=== PATIENT | male | born 1960 | race Caucasian/White ===

== ENCOUNTER 2018-03-31 08:58 | Outpatient (CLI) | payer BC, SELFPAY ==
[2018-03-31 10:57] LABS: Hemoglobin A1C 7.1 % (4.5-6.2)
[2018-03-31 10:59] LABS: ALT 147 U/L (12-78); AST 61 U/L (15-37); Albumin 3.7 g/dL (3.4-5.0); Alkaline Phosphatase 84 U/L (46-116); Anion Gap 11.5 mmol/L (3-11); BUN 18 mg/dL (7-18); Bilirubin, Total 0.6 mg/dL (0.2-1.0); CO2 23.5 mmol/L (21.0-32.0); CREATININE 1.23 mg/dL (0.70-1.30); Calcium 8.9 mg/dL (8.5-10.1); Chloride 106 mmol/L (98-107); Cholesterol 188 mg/dL (50-200); Glucose 167 mg/dL (70-100); HDL Cholesterol 53 mg/dL (40-60); LDL CHOLESTEROL 115 mg/dL (<100); Potassium 4.5 mmol/L (3.5-5.1); Sodium 141 mmol/L (136-145); Triglyceride 99 mg/dL (30-150)
[2018-04-01 11:35] LABS: Rheumatoid Factor <8 IU/mL (<12.5)
== END 2018-03-31 09:18 ==
PROVIDERS: PCP Emergency Medicine; Visit Provider Emergency Medicine
DX: Z00.00 Encounter for general adult medical examination without abnormal findings (principal); E11.9 Type 2 diabetes mellitus without complications; I10 Essential (primary) hypertension; E03.9 Hypothyroidism, unspecified; F32.9 Major depressive disorder, single episode, unspecified; K21.9 Gastro-esophageal reflux disease without esophagitis; R53.83 Other fatigue
CPT/HCPCS: 36415; 80053; 80061; 83721; 83036; 86431

== ENCOUNTER 2018-05-14 10:37 | Outpatient (CLI) | payer BC, SELFPAY ==
[2018-05-14 13:26] LABS: ALT 122 U/L (12-78); AST 50 U/L (15-37); Albumin 3.8 g/dL (3.4-5.0); Alkaline Phosphatase 88 U/L (46-116); Bilirubin, Direct 0.15 mg/dL (0.00-0.20); Bilirubin, Total 0.5 mg/dL (0.2-1.0); C-Reactive Protein 0.19 mg/dL (0.0-0.3); Total Protein 6.7 g/dL (6.4-8.2)
[2018-05-14 14:09] LABS: Ferritin 388 ng/mL (8-388)
[2018-05-17 10:54] LABS: Hepatitis A Antibody IgM Negative (NEGAT); Hepatitis B Core Antibody Negative (NEGAT); Hepatitis B surface Ag Negative (NEGAT); Hepatitis C Ab w Rflx HCV PCR Negative (NEGAT)
== END 2018-05-14 10:57 ==
PROVIDERS: PCP Emergency Medicine; Visit Provider Emergency Medicine
DX: R74.8 Abnormal levels of other serum enzymes (principal); R94.5 Abnormal results of liver function studies
CPT/HCPCS: 36415; 80076; 86704; 86709; 86803; 87340; 82728; 86140

== ENCOUNTER 2018-05-25 00:37 | Outpatient (CLI) | payer BC, SELFPAY ==
--- NOTE | 2018-05-25 06:57 | DI.US_ITS ---
SYMPTOM/DIAGNOSIS: ELEVATED LFT'S, R74.8 ABDOMEN ULTRASOUND: Comparison CT scan of the chest is 06/03/14. The aorta and IVC are unremarkable. There is diffuse increased echogenicity of the liver consistent with fatty infiltration. There are two areas of decreased echogenicity within the liver adjacent to the gallbladder fossa. The areas are characteristic for focal fatty sparing. No other hepatic lesion is seen. The gallbladder and common bile duct are within normal limits as are the pancreas and spleen. The kidneys are unremarkable except for mild prominence of the left renal pelvis. This may represent a prominent extrarenal pelvis. Hydronephrosis cannot be excluded. IMPRESSION: 1. Hepatic steatosis. 2. Areas of decreased echogenicity within the liver adjacent to the gallbladder fossa. This area is a common site for focal fatty sparing. Mass is considered less likely. If further imaging is warranted, a CT scan may be considered. 3. Mild left hydronephrosis versus prominent extrarenal pelvis.
== END 2018-05-25 00:57 ==
PROVIDERS: PCP Emergency Medicine; Visit Provider Emergency Medicine
DX: K76.0 Fatty (change of) liver, not elsewhere classified (principal); R74.8 Abnormal levels of other serum enzymes
CPT/HCPCS: 76700

== ENCOUNTER 2018-09-14 15:47 | Outpatient (CLI) | payer BC, SELFPAY ==
--- NOTE | 2018-09-14 15:30 | DI.RAD_ITS ---
SYMPTOMS/DIAGNOSIS: PNEUMONIA, J18.9, COUGH X 1 WEEK PA AND LATERAL CHEST: The heart is normal in size. The lungs are clear. The mediastinal structures and pleura appear intact. SUMMARY: Normal chest. No evidence of acute cardiopulmonary disease.
[2018-09-14 17:33] LABS: HCT 39.1 % (40.0-50.0); HGB 13.4 g/dL (13.5-17.5); Mean Corp. HGB Concentration 34.3 g/dL (32.0-36.0); Mean Corpuscular Hemoglobin 32.8 pg (27.0-33.0); Mean Corpuscular Volume 95.6 fL (80-95); Mean Platelet Volume 10.8 fL (8.0-11.0); Platelet Count 172 x1000/uL (130-400); RBC 4.09 m/cumm (4.50-6.00); RBC Distribution Width 13.7 % (11.8-14.1); White Blood Cell Count 6.41 k/cumm (4.4-10.8)
[2018-09-14 18:01] LABS: Hemoglobin A1C 6.9 % (4.5-6.2)
== END 2018-09-14 16:07 ==
PROVIDERS: PCP Emergency Medicine; Visit Provider Emergency Medicine
DX: J18.9 Pneumonia, unspecified organism (principal)
CPT/HCPCS: 36415; 85027; 71046; 83036

== ENCOUNTER 2018-10-27 11:13 | Outpatient (CLI) | payer BC, SELFPAY ==
[2018-10-28 11:04] LABS: PSA, Screening 4.1 ng/ml (0-3.5)
== END 2018-10-27 11:33 ==
PROVIDERS: PCP Emergency Medicine; Visit Provider Emergency Medicine
DX: Z12.5 Encounter for screening for malignant neoplasm of prostate (principal)
CPT/HCPCS: 36415; 84153

== ENCOUNTER 2019-01-10 10:53 | Outpatient (CLI) | payer BC, SELFPAY ==
[2019-01-11 13:16] LABS: PSA, Screening 5.1 ng/mL (0.0-3.5)
== END 2019-01-10 11:13 ==
PROVIDERS: PCP Emergency Medicine; Visit Provider Emergency Medicine
DX: R97.20 Elevated prostate specific antigen [PSA] (principal); Z12.5 Encounter for screening for malignant neoplasm of prostate
CPT/HCPCS: 36415; 84153

== ENCOUNTER 2019-07-04 09:01 | Outpatient (CLI) | payer BC, SELFPAY ==
[2019-07-04 11:43] LABS: Hemoglobin A1C 7.2 % (3.8-5.6)
[2019-07-05 09:53] LABS: PSA, Screening 5.1 ng/mL (0.0-3.5)
== END 2019-07-04 09:21 ==
PROVIDERS: PCP Emergency Medicine; Visit Provider Nurse Practitioner Gerontology
DX: E11.9 Type 2 diabetes mellitus without complications (principal); R97.20 Elevated prostate specific antigen [PSA]; Z12.5 Encounter for screening for malignant neoplasm of prostate
CPT/HCPCS: 36415; 84153; 83036

== ENCOUNTER 2019-08-22 07:53 | Outpatient (CLI) | payer BC, SELFPAY ==
[2019-08-25 07:49] LABS: SARS-CoV-2 RNA Undetected (Undetected); SARS-CoV-2 Specimen Source Nasopharynx
== END 2019-08-22 08:13 ==
PROVIDERS: PCP Emergency Medicine; Visit Provider Emergency Medicine
DX: Z01.818 Encounter for other preprocedural examination (principal); Z11.59 Encounter for screening for other viral diseases
CPT/HCPCS: U0003

== ENCOUNTER 2020-02-21 14:44 | Outpatient (REF) | payer BC, SELFPAY ==
[2020-02-21 17:52] LABS: PSA, Screening 5.9 ng/mL (0.0-3.5)
== END 2020-02-21 15:04 ==
LOC: LBN 14:44
PROVIDERS: PCP Emergency Medicine; Visit Provider Nurse Practitioner Gerontology
DX: R97.20 Elevated prostate specific antigen [PSA] (principal); Z12.5 Encounter for screening for malignant neoplasm of prostate
CPT/HCPCS: 84153

== ENCOUNTER 2020-04-18 11:55 | Outpatient (REF) | payer BC, SELFPAY ==
[2020-04-18 22:36] LABS: Hemoglobin A1C 8.2 % (<5.7)
[2020-04-18 22:43] LABS: Anion Gap 9.2 mmol/L (3-11); BUN 19 mg/dL (7-18); CO2 24.8 mmol/L (21.0-32.0); CREATININE 1.2 mg/dL (0.70-1.30); Calcium 9.2 mg/dL (8.5-10.1); Calculated LDL 133 mg/dL (<100); Chloride 106 mmol/L (98-107); Cholesterol 206 mg/dL (<200); Glucose 154 mg/dL (74-106); HDL Cholesterol 53 mg/dL (40-60); Potassium 4.6 mmol/L (3.5-5.1); Sodium 140 mmol/L (136-145); Triglyceride 104 mg/dL (<150)
== END 2020-04-18 11:56 | disposition home or self-care (01) ==
LOC: LBN 11:55
PROVIDERS: PCP Emergency Medicine; Visit Provider Emergency Medicine
DX: I10 Essential (primary) hypertension (principal); E11.9 Type 2 diabetes mellitus without complications
CPT/HCPCS: 80048; 80061; 83036

== ENCOUNTER 2020-05-07 02:16 | Outpatient (CLI) | payer BC, SELFPAY ==
--- NOTE | 2020-05-07 06:45 | DI.MRI_ITS ---
EXAM: MR LUMBAR SPINE WO CLINICAL HISTORY: chronic right sciatica, spinal stenosis,LOW BACK PAIN, M54.40,M48.00,G89.29. TECHNIQUE: Multiplanar multisequence MRI of the Lumbar spine was performed. COMPARISON: CR LUMBAR SPINE COMPLETE from 02/26/2010 FINDINGS: Plain films of lumbar spine February 2010 were reviewed. There are 5 vertebrae of lumbar configuratio n. Conus medullaris is at the L2 level. There is no evidence of conus mass nor subjacent clumping of in trathecal nerve roots to suggest arachnoiditis. The distal thecal sac appears unremarkable.There is no evidence of Tarlov intrasacral cysts nor other significant findings within the sacral canal Bones:There are no fractures nor ominous osseous lesions in the lumbar vertebral bodies and visualize d sacrum. Benign intraosseous hemangioma is noted in the posterior aspect of T12 vertebral body and other hemangioma is seen in the L1 vertebral body. Also another benign intraosseous hemangioma is no hilary in left side of L4 vertebral body. With respect to the individual levels... T12-L1: Unremarkable L1-2: Normal disc height and signal. No disc herniation nor central canal stenosis.No foraminal steno sis L2-3: Normal disc height. Small anterior osseous lipping. Posteriorly there is no significant disc herniation. Central canal dimensions within normal limits and there is no foraminal stenosis nor sig nificant facet arthropathy. L3-4: Normal disc height. Symmetrical annular bulging but without a distinct focal disc herniation. The annular bulging flattens the anterior aspect of the thecal sac.Mild central canal stenosis. The re is no significant foraminal stenosis.No facet arthropathy. L4-5: Normal disc height. Mild annular bulging without a distinct focal disc herniation. There is m ild anterolisthesis of L4 relative to L5, this evident more so on the right than the left side and re lated to advanced degenerative changes in the right facet joint at this level. Left facet joint appe ars relatively unremarkable. There is mild central canal stenosis due to the symmetrical annular bul ging, short AP dimensions the pedicles and degenerative facet joint changes. There is moderate right -sided foraminal stenosis at this level mostly due to the asymmetric degenerative change in the right facet joint and slight decreased disc height on the right side at this level. The exiting neural fo ramen on the opposite-laced left-side is nicely patent. L5-S1: Normal disc height and signal. No disc herniation. No central canal stenosis. No foraminal stenosis. Minimal facet degenerative changes. Soft tissues: paraspinal soft tissues appear unremarkable. IMPRESSION: 1. At the L4-5 level there is mild central canal stenosis and there is significant foraminal narrowin g on the right side as described above. This causes some impingement of the exiting nerve root betwe en the subjacent annulus and the overlying right L4 pedicle. There is also slight anterolisthesis of L4 upon L5 which is more evident on the right than left side and related to the asymmetric facet art hropathy at this level, right more so than left. See above. 2. Other mild findings as above. 3. Multilevel benign intraosseous hemangiomas in the vertebral bodies. No ominous osseous lesions ev ident. DATA REPOSITORY:
== END 2020-05-07 02:36 ==
PROVIDERS: PCP Emergency Medicine; Visit Provider Emergency Medicine
DX: M48.061 Spinal stenosis, lumbar region without neurogenic claudication (principal); M54.41 Lumbago with sciatica, right side
CPT/HCPCS: 72148

== ENCOUNTER 2020-08-22 10:26 | Outpatient (CLI) | payer BC, SELFPAY ==
[2020-08-22 13:03] LABS: Hemoglobin A1C 7.4 % (<5.7)
[2020-08-22 21:48] LABS: PSA, Diagnostic 6.4 ng/mL (0.0-3.5)
== END 2020-08-22 10:27 | disposition home or self-care (01) ==
LOC: LOS 08-23 10:26
PROVIDERS: Nurse Practitioner Gerontology; PCP Emergency Medicine; Visit Provider Emergency Medicine
DX: E11.9 Type 2 diabetes mellitus without complications (principal); R97.20 Elevated prostate specific antigen [PSA]
CPT/HCPCS: 36415; 83036; 84153

== ENCOUNTER 2021-01-01 08:38 | Outpatient (CLI) | payer BC, SELFPAY ==
--- NOTE | 2021-01-01 08:30 | RT.EKG_ITS ---
APPROVED REPORT Exam: Resting ECG Reason for Exam: Preoperative testing Patient Location: O HR:78 bpm ECG Measurements Heart Rate 78 AXIS UT 156 P 36 QRSd 98 QRS 56 QT 372 T 53 QTc 426 Conclusion Sinus rhythm...normal P axis, V-rate 60- 99 Low voltage, precordial leads...precordial leads <1.0mV
== END 2021-01-01 08:39 | disposition home or self-care (01) ==
LOC: DI.CM 08:43
PROVIDERS: PCP Emergency Medicine; Visit Provider Family Medicine
DX: Z01.818 Encounter for other preprocedural examination (principal)
CPT/HCPCS: 93010

== ENCOUNTER 2021-01-18 04:11 | Outpatient (CLI) | payer BC, SELFPAY ==
[2021-01-18 12:50] LABS: HCT 42.5 % (40.0-50.0); HGB 14.3 g/dL (13.5-17.5); MCH 32.9 pg (27.0-33.0); MCHC 33.6 % (32.0-36.0); MCV 97.9 fL (80-95); RBC 4.34 10^6/uL (4.36-5.78); RDW 12.2 % (11.8-14.1); RDW-SD 44.2 fL; WBC 5.16 10^3/uL (4.4-10.8)
[2021-01-18 13:28] LABS: ALT 90 U/L (16-63); AST 39 U/L (15-37); Albumin 4.3 g/dL (3.4-5.0); Alkaline Phosphatase 63 U/L (46-116); Anion Gap 10.2 mmol/L (3-11); BUN 21 mg/dL (7-18); Bilirubin, Total 0.7 mg/dL (0.2-1.0); CO2 25.8 mmol/L (21.0-32.0); CREATININE 1.2 mg/dL (0.70-1.30); Calculated LDL 127 mg/dL (<100); Chloride 105 mmol/L (98-107); Cholesterol 193 mg/dL (<200); Glucose 117 mg/dL (74-106); HDL Cholesterol 53 mg/dL (40-60); Potassium 4.7 mmol/L (3.5-5.1); Sodium 141 mmol/L (136-145); Total Protein 7.5 g/dL (6.4-8.2); Triglyceride 65 mg/dL (<150)
[2021-01-18 13:38] LABS: Microalb ug/mg Crea 5.1 ug/mg Cr
[2021-01-18 22:46] LABS: PSA, Screening 7.1 ng/mL (0.0-3.5)
== END 2021-01-18 04:12 | disposition home or self-care (01) ==
LOC: LOS 04:11
PROVIDERS: PCP Emergency Medicine; Visit Provider Family Medicine
DX: E11.9 Type 2 diabetes mellitus without complications; I10 Essential (primary) hypertension; Z12.5 Encounter for screening for malignant neoplasm of prostate
CPT/HCPCS: 36415; 80053; 80061; 84153; 85027; 82043; 82570; 83036

== ENCOUNTER 2021-02-21 08:16 | Outpatient (REF) | payer BC, SELFPAY | END 2021-02-21 08:17 | disposition home or self-care (01) | LOC: LBN 08:16 | PROVIDERS: PCP Emergency Medicine; Visit Provider Emergency Medicine ==

== ENCOUNTER 2021-07-29 09:21 | Outpatient (CLI) | payer BC, SELFPAY ==
--- NOTE | 2021-07-29 08:45 | DI.RAD_ITS ---
Exam(s) XR HIP RT COMPLETE AP PELVIS EXAM: XR HIP RT COMPLETE AP PELVIS INDICATION: R hip pain. COMPARISON: CR LUMBAR SPINE COMPLETE from 02/26/2010 US US ABDOMEN from 05/25/2018 TECHNIQUE: 2D digital imaging was performed. Two views. FINDINGS: The hip joint spaces are well maintained. There is mild acetabular spurring on the left. No signif icant spurring on the right. Hardware is noted through both SI joints IMPRESSION: Mild degenerative changes of the left hip. DATA REPOSITORY: RADIATION DOSE DELIVERED:
== END 2021-07-29 09:22 | disposition home or self-care (01) ==
LOC: DIORS 09:22
PROVIDERS: PCP Nurse Practitioner Family; Referring Provider Nurse Practitioner Family; Visit Provider Physician Assistant
DX: M25.551 Pain in right hip (principal)
CPT/HCPCS: 73502

== ENCOUNTER → 2021-08-22 01:26 | Outpatient (CLI) | payer BC, SELFPAY ==
--- NOTE | 2021-08-22 08:30 | DI.RAD_ITS ---
Exam(s) RF JOINT INJECTION FLUORO GUID EXAM: RF JOINT INJECTION FLUORO GUID CLINICAL HISTORY: R HIP INJ UNDER FLUORO, RT HIP PAIN, M25.551 TECHNIQUE: Fluoroscopy provided. Radiologist not present. CONTRAST MATERIAL: None COMPARISON: No exams were available for comparison FINDINGS: Fluoroscopy was provided for therapeutic therapeutic right hip injection. Please refer to the procedure report for complete details. Cumulative Dose: Kar=0.31 mGy IMPRESSION: RADIATION DOSE DELIVERED:
--- NOTE | 2021-08-22 14:49 | W.PROCNOTE ---
Date of service: 08/22/21 Time of Service: 14:49 Procedure Note Date of procedure: 08/22/21 Procedure: Right Hip Injection with Fluoroscopic Guidance Surgeon/Proceduralist/Physician: Albert Mckeon Procedure Diagnosis: Right Hip Osteoarthritis Procedure Indications: Aly has had persistent pain of the RIGHT hip and groin. Noninvasive measures have been tried. To serve as both diagnostic and therapeutic, an injection under fluoroscopy was recommended. I had discussed the risks of the procedure and the patient elected to proceed. Procedure Description: Aly was greeted in the flouroscopy room. The correct side was identified and the consent was reviewed with the patient and signed. The patient was then placed in the supine position on the fluoroscopy table. The RIGHT hip was then prepped with Chloraprep. The anterolateral injection starting point was identiifed by bony landmarks and fluoroscopy. The skin and soft tissue in the tract of the injection was anesthetized with 1% Lidocaine. A spinal needle was then inserted deep into the hip joint at the level of the lateral femoral neck under fluoroscopic guidance. A small amount of Omnipaque solution was injected to confirm intraarticular placement. Once confirmed, the hip was injected with 6cc of 0.5% Bupivicaine and 80mg of Depo-Medrol. A bandaid was placed on the injection site. The patient tolerated the procedure well.
[2021-08-22] MEDS: Omnipaque 300 MG/ML 10 ML BTL IJ (15:09)
[2021-08-22] MEDS: methylPREDNISolone ACETATE 80 MG/ML VIAL IM (15:09)
[2021-08-22] MEDS: Bupivacaine 0.5% Pres-Free 10 ML VIAL 30 ML IJ (15:10)
== END ==
PROVIDERS: PCP Nurse Practitioner Family; Visit Provider Student in an Organized Health Care Education/Training Program
DX: M25.551 Pain in right hip (principal)
CPT/HCPCS: 20610; 77002; J1040

== ENCOUNTER 2021-09-02 01:48 | Outpatient (CLI) | payer BC, SELFPAY ==
[2021-09-03 16:27] LABS: Free PSA/PSA Ratio 0.06 ratio
== END 2021-09-02 01:49 | disposition home or self-care (01) ==
LOC: LBO 01:48
PROVIDERS: PCP Nurse Practitioner Family; Visit Provider Nurse Practitioner Gerontology
DX: R97.20 Elevated prostate specific antigen [PSA] (principal)
CPT/HCPCS: 36415; 84154

== ENCOUNTER 2021-09-11 14:37 | Outpatient (REF) | payer BC, SELFPAY ==
[2021-09-11 10:34] LABS: CREATININE 1.2 mg/dL (0.70-1.30)
== END 2021-09-11 14:38 | disposition home or self-care (01) ==
LOC: LBN 14:37
PROVIDERS: PCP Nurse Practitioner Family; Visit Provider Nurse Practitioner Gerontology
DX: R97.20 Elevated prostate specific antigen [PSA] (principal); Z01.812 Encounter for preprocedural laboratory examination
CPT/HCPCS: 82565

== ENCOUNTER → 2021-11-21 01:40 | Outpatient (CLI) | payer BC, SELFPAY ==
--- NOTE | 2021-11-21 06:45 | DI.US_ITS ---
Exam(s) US PROSTATE BIOPSY EXAM: US PROSTATE BIOPSY CLINICAL HISTORY: biopsy for cancer detection,ELEVATED PSA, R97.20,ULTRASOUND GUIDED BX TECHNIQUE: Ultrasound performed using standard protocol. COMPARISON: No exams were available for comparison FINDINGS: Ultrasound guidance was provided for prostate biopsy performed by Dr. Mcdaniels. Please see the procedur e note. IMPRESSION: DATA REPOSITORY:
--- NOTE | 2021-11-21 08:30 | PROST_PTH ---
PATIENT: Aly Goyal LOC: [facility] U#:[id number] AGE/SX: 64/M ROOM: RE11/21/[address]: Samson Mcdaniels MD : [id number] BED: DIS: SPEC #: [id number] RECD: 11/21/21 12:54 STATUS: JOSE A DOCKERY #: [id number] TESSIE: 11/21/21 08:[address]: Samson Mcdaniels DEPT: Surgical Specimen RECD BY: Aniyah Blake ENTERED: 11/21/21 12:57 SP TYPE: PROST OTHR DR: Emir Clayton, [employer] Tissues: 1 - PROSTATE NEEDLE BIOPSY 2 - PROSTATE NEEDLE BIOPSY 3 - PROSTATE NEEDLE BIOPSY 4 - PROSTATE NEEDLE BIOPSY 5 - PROSTATE NEEDLE BIOPSY 6 - PROSTATE NEEDLE BIOPSY 7 - PROSTATE NEEDLE BIOPSY 8 - PROSTATE NEEDLE BIOPSY 9 - PROSTATE NEEDLE BIOPSY 10 - PROSTATE NEEDLE BIOPSY 11 - PROSTATE NEEDLE BIOPSY 12 - PROSTATE NEEDLE BIOPSY Procedures: GROSS AND MICRO LEVEL 4 Comments: [id number]
--- NOTE | 2021-11-21 08:45 | W.PM.OP ---
Date of service: 11/21/21 Time of Service: 08:45 Operative Note Operative Note DATE OF PROCEDURE: 11/21/21 PRE-OP DIAGNOSIS: Elevated PSA POST-OP DIAGNOSIS: same abnormal MP prostate MRI PROCEDURE: Transrectal ultrasound-guided biopsy of the prostate SURGEON: Samson Mcdaniels ANESTHESIA TYPE: Local By Surgeon Refer to Anesthesia Record ESTIMATED BLOOD LOSS: 10 PATHOLOGY: other (Laterally directed biopsies of the prostate) COMPLICATIONS: None Patient was transported to: no change Patient's condition: stable Implants: None Indications: This is a 61-year-old gentleman who has a history of an elevated PSA. His most recent PSA level was 8.9 ng/mL and his free and total PSA puts him in a high risk group for prostate cancer. He underwent a multiparameter prostate MRI and an abnormality was identified at the right apex. His overall findings were consistent with PI-RADS 5. He presents for ultrasound-guided biopsy of the prostate Procedure Description: The patient was brought to the radiology suite on 11/21/2021. He had been given a preprocedural antibiotic and mechanical bowel prep. He was placed in the left lateral position. Transrectal imaging of the prostate was then performed using a variable megahertz transducer. The prostate was imaged in transverse and longitudinal planes. The prostatic volume was measured at 33 cc. On MRI, the prostate was measured at 13 cc. No specific hypoechoic areas were seen, but there was loss of architecture between the transition and peripheral zones throughout the prostate. A periprostatic nerve block with 1% lidocaine was then performed. A total of 12 laterally directed biopsies were taken, labeled and sent to pathology for permanent section. The patient tolerated the procedure well with no complications.
== END ==
PROVIDERS: PCP Nurse Practitioner Family; Visit Provider Urology
DX: R97.20 Elevated prostate specific antigen [PSA] (principal); C61 Malignant neoplasm of prostate
CPT/HCPCS: 55700; 88305; 76942

== ENCOUNTER → 2021-12-25 01:45 | Outpatient (CLI) | payer BC, SELFPAY ==
--- NOTE | 2021-12-25 07:00 | DI.NM_ITS ---
Exam(s) NM BONE SCAN WHOLE BODY GRP EXAM: NM BONE SCAN WHOLE BODY GRP CLINICAL HISTORY: ? bony mets, prostate ca,c61. TECHNIQUE: Injected Dose: 25 mCi Tc-99m MDP Delayed Images: 2-3 hours. COMPARISON: CR CHEST 2 VIEWS PA,LAT from 06/03/2015 CR XR CHEST 2V PA LATERAL from 09/14/2018 MR MR LUMBAR SPINE WO from 05/07/2020 FINDINGS: Symmetric axial uptake. Bilateral renal excretion is identified. No focal area of intense suspicious uptake is seen. There is mild increased radiotracer uptake at the right aspect at the L4-5 disc level . This appears to correspond tube marked facet arthropathy seen on the MRI examination from 1. There is increased radiotracer uptake in the acromioclavicular regions bilaterally, left greater than right. This may represent degenerative changes. However the left focus of increased activity s hould be further evaluated with an x-ray of the left shoulder. IMPRESSION: 1. Increased radiotracer uptake seen in the distal left clavicle. It is more prominent compared to t he contralateral shoulder. While this may still represent degenerative change, and x-ray of the left shoulder is recommended for further evaluation. 2. No other suspicious areas of increased radiotracer uptake are seen. DATA REPOSITORY:
== END ==
PROVIDERS: PCP Nurse Practitioner Family; Visit Provider Nurse Practitioner Gerontology
DX: C61 Malignant neoplasm of prostate (principal)
CPT/HCPCS: 78306

== ENCOUNTER → 2022-01-10 00:48 | Outpatient (CLI) | payer BC, SELFPAY ==
--- NOTE | 2022-01-10 09:52 | DI.RAD_ITS ---
Exam(s) XR SHOULDER LT COMPLETE 2+V EXAM: XR SHOULDER LT COMPLETE 2+V CLINICAL HISTORY: ABN bone scan area to left shoulder M75.92 SHOULDER LESION, LEFT SHOULDER TECHNIQUE: COMPARISON: [facility] BONE SCAN WHOLE BODY GRP from 12/25/2021 FINDINGS: Five views were obtained. Cartilaginous joint space of the glenohumeral joint appears fairly well ma intained. There are mild hypertrophic marginal osteophytes of the glenohumeral and acromioclavicular joints. No other bony or soft tissue abnormality seen. Regarding the abnormal uptake identified in the distal left clavicle on recent bone scan, radiographi c findings are probably consistent with a degree of abnormality identified on the bone scan. If ther e is a high clinical suspicion of neoplastic disease or infection, additional evaluation with MRI cou ld be considered. IMPRESSION: RADIATION DOSE DELIVERED: Total DLP
== END ==
PROVIDERS: PCP Nurse Practitioner Family; Visit Provider Nurse Practitioner Gerontology
DX: M75.92 Shoulder lesion, unspecified, left shoulder (principal)
CPT/HCPCS: 73030

== ENCOUNTER 2022-02-24 02:34 | Outpatient (CLI) | payer BC, SELFPAY ==
[2022-02-24 13:12] LABS: CREATININE 1.2 mg/dL (0.70-1.30); Estimated GFR 69.23 (mL/min/1.73m2)
[2022-02-24 13:18] LABS: Creatine Kinase 52 U/L (39-308)
[2022-02-24] MEDS: Normal Saline Flush 10 ML SYR IVP (13:34)
[2022-02-24] MEDS: Gadoterate meglumine 20 ML SYRINGE IVP (13:35)
--- NOTE | 2022-02-24 13:45 | DI.MRI_ITS ---
Exam(s) MR UPPER JOINT LT WO/W EXAM: MR UPPER JOINT LT WO/W CLINICAL HISTORY: evaluate neoplasm left shoulder/clavicle,PROSTATE CA,C61. TECHNIQUE: Multiplanar multisequence MRI was performed. Additional pre and post gadolinium T1 fat s uppressed sequences were performed. 20 mL Dotarem administered IV. COMPARISON: Plain films 10 January 2022. Bone scan 25 December 2021. FINDINGS: Bones: There is no fracture or contusion pattern. No suspicious bony lesions. The acromioclavicular joint shows minimal spurring a tiny amount of fluid. Minimal bony erosions.. No suspicious bony lesion. No abnormal enhancement. No adjacent soft tissue abnormality. Glenohumeral joint: Minimal amount of fluid. Rotator Cuff: The supraspinatus tendon shows some thickening and intermediate signal consistent tendi nosis.. Infraspinatus tendon is intact. Teres minor tendon unremarkable. The subscapularis tendon shows thickening and intermediate signal. No focal tear visible. Labrum and biceps anchor: The biceps tendon is located. Degenerative changes superior glenoid. Soft tissues: Unremarkable. Bursa: Small amount of fluid in the subcoracoid bursa. IMPRESSION: Minimal degenerative changes of the AC joint. No evidence of a suspicious bone or soft tissue mass. Supraspinatus and subscapularis tendinosis. DATA REPOSITORY:
== END 2022-02-24 02:54 ==
LOC: DI 02:34
PROVIDERS: PCP Nurse Practitioner Family; Visit Provider Nurse Practitioner Family
DX: C61 Malignant neoplasm of prostate (principal); M79.602 Pain in left arm; M75.82 Other shoulder lesions, left shoulder
CPT/HCPCS: 82550; 73223; 82565

== ENCOUNTER 2022-03-24 13:46 | Outpatient (CLI) | payer BC, SELFPAY ==
[2022-03-24 12:47] LABS: Hemoglobin A1C 7.1 % (<5.7)
== END 2022-03-24 13:47 | disposition home or self-care (01) ==
LOC: LOS 13:47
PROVIDERS: PCP Nurse Practitioner Family; Visit Provider Nurse Practitioner Family
DX: E11.9 Type 2 diabetes mellitus without complications (principal)
CPT/HCPCS: 36415; 83036

== ENCOUNTER 2022-03-26 12:08 | Outpatient (CLI) | payer BC, SELFPAY ==
--- NOTE | 2022-03-26 06:00 | DI.RAD_ITS ---
Exam(s) XR PAIN CLINIC LUMBAR SP 2V EXAM: XR PAIN CLINIC LUMBAR SP 2V CLINICAL HISTORY: Dx: Lumbar Arthropathy TECHNIQUE: 2D and realtime digital imaging was performed. CONTRAST MATERIAL: Refer to procedure report. COMPARISON: No exams were available for comparison FINDINGS: Fluoroscopy was provided for Dr. Levy during the performance of a lumbar nerve root block. Please r efer to the procedure report for complete details. Ka,r=16.3 mGy IMPRESSION:
[2022-03-26 12:18] VITALS: BP 137/89; PULSE 74; RESP 20; TEMP 36.7; O2SAT 98
--- NOTE | 2022-03-26 13:38 | PDOC.PAIN_ITS ---
Date of service: 03/26/22 Time of Service: 13:53 Pain Clinic Procedure Note Procedure Note Procedure Note: PROCEDURE NOTE Selective Nerve Block with Fluoroscopic Guidance at Right L5 Chief Complaint: RIGHT leg pain. Pre-operative diagnosis: Lumbosacral Radiculopathy Post-operative diagnosis: Same Pre-procedure pain: VAS= 6/10 Aly Goyal has been [facility] a Selective Nerve Root Block at the right L5 COMMENTS: Referring provider: Dr. Puga Allergies: Non-contributory Pre-procedure VAS: 6/10 to the right leg. Follow up plan: Follow up with Dr. Puga Aly Goyal was greeted by the nurse who verified patients name and . Patient was then taken to the fluoroscopy suite. Aly was interviewed and the medical record reviewed. There were no medical, pharmacologic, radiographic or other structural contraindications to attempting fluoroscopically guided right L5 selective nerve root block. The risks, benefits, and potential side effects were reviewed with the patient. Risk include, but not limited to, post dural puncture, headache, infection, nerve injury, allergic reaction, possible increase in symptoms over the ensuing 24 to 48 hours, and paralysis. The patient appeared to understand, questions were answered and the patient agreed to proceed. Once I obtained informed verbal consent, the printed consent form was signed by the patient and myself. Standard time-out procedure was performed. TECHNIQUE: After informed written consent was obtained the patient was placed in the prone position. The {Anatomy; spine regions:09275} spine was prepped with chloraprep and draped. Sterile technique was observed during the entire procedure ( cap, gloves, and mask were worn). Vitals signs were monitored throughout the procedure. The right side was marked with a radiopaque marker. The skin and subcutaneous structures were anesthetized with lidocaine 1% to a total volume of 3 ML. Under fluoroscopic guidance, in ipsilateral oblique view, co-axial approach, 22 gauge 5 Spinal needle(s) were advanced into the right L5 foramen. The needle(s) were advanced to the superio-posterior aspect of the neural foramen under lateral view. Oblique and AP views were rechecked. Under AP view Omnipaque 240 1 ml was injected while visualized with fluoroscopy. There was no evidence of intravascular uptake, the right L5 nerve root was delineated. 15 mg Dexamethasone was injected after negative aspiration, followed by 0.5 cc of 2% lidocaine. (49 ml of Omnipaque was wasted) Outcome: The patient tolerated the procedure well and had stable vital signs. The patient noted after getting up after the procedure that their RIGHT leg pain was at a 3 out of 10 level. Follow up plans and appointments were discussed with Aly . 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 The patient received written instructions as documented in nursing records. Post-procedure pain: VAS= 3/10 Disposition: Aly was discharged from the procedure suite without new neurological complaints. Follow-up: Follow up with Dr. Puga as scheduled or PRN. DELPHINE GUEVARA DO, MPH ABPMR-subspecialty board certification in Pain Medicine [facility]
[2022-03-26] MEDS: Lidocaine 2% Pres-Free 5 ML VIAL IJ (13:39)
[2022-03-26] MEDS: Dexamethasone Sod. Phos./Pres-Free 10 MG/ML VIAL IJ (13:39)
[2022-03-26 13:40] VITALS: BP 152/89; PULSE 68; RESP 14; O2SAT 97
[2022-03-26] MEDS: Omnipaque 240 MG/ML 50 ML BTL IJ (13:40)
== END 2022-03-26 12:09 | disposition home or self-care (01) ==
LOC: PC 12:10
PROVIDERS: PCP Nurse Practitioner Family; Visit Provider Preventive Medicine Occupational Medicine
DX: M54.17 Radiculopathy, lumbosacral region (principal)
CPT/HCPCS: 64483; 72100; Q9967

== ENCOUNTER 2022-05-30 19:53 | Outpatient (REF) | payer BC, SELFPAY | END 2022-05-30 19:54 | disposition home or self-care (01) | LOC: LBN 19:53 | PROVIDERS: PCP Nurse Practitioner Family; Visit Provider Nurse Practitioner Family | DX: B95.7 Other staphylococcus as the cause of diseases classified elsewhere; T81.49XA Infection following a procedure, other surgical site, initial encounter; L08.89 Other specified local infections of the skin and subcutaneous tissue; L53.8 Other specified erythematous conditions | CPT/HCPCS: 87077; 87070; 87186; 87205 ==

== ENCOUNTER 2022-07-17 03:06 | Outpatient (CLI) | payer BC, SELFPAY ==
--- NOTE | 2022-07-17 08:45 | DI.RAD_ITS ---
Exam(s) RF JOINT INJECTION FLUORO GUID EXAM: RF JOINT INJECTION FLUORO GUID CLINICAL HISTORY: R HIP INJ UNDER FLUORO,RT HIP PAIN, M25.551 TECHNIQUE: Fluoroscopy provided. Radiologist not present. CONTRAST MATERIAL: None COMPARISON: No exams were available for comparison FINDINGS: Fluoroscopy was provided for right hip injection Please refer to procedure report for details. Cumulative Dose: geoffrey Bloom=0.198 mGy IMPRESSION: RADIATION DOSE DELIVERED:
[2022-07-17] MEDS: Omnipaque 300 MG/ML 10 ML BTL 5 ML IJ (15:18)
[2022-07-17] MEDS: methylPREDNISolone ACETATE 80 MG/ML VIAL IM (15:19)
[2022-07-17] MEDS: Bupivacaine 0.5% Pres-Free 10 ML VIAL 5 ML IJ (15:20)
--- NOTE | 2022-07-17 15:40 | W.PROCNOTE ---
Date of service: 07/17/22 Time of Service: 15:10 Procedure Note Date of procedure: 07/17/22 Procedure: Right Hip Injection with Fluoroscopic Guidance Surgeon/Proceduralist/Physician: Albert Mckeon Procedure Diagnosis: Right Hip Osteoarthritis Procedure Indications: Aly has had persistent pain of the RIGHT hip and groin. Noninvasive measures have been tried. To serve as both diagnostic and therapeutic, an injection under fluoroscopy was recommended. I had discussed the risks of the procedure and the patient elected to proceed. Procedure Description: Aly was greeted in the flouroscopy room. The correct side was identified and the consent was reviewed with the patient and signed. The patient was then placed in the supine position on the fluoroscopy table. The RIGHT hip was then prepped with Chloraprep. The anterolateral injection starting point was identiifed by bony landmarks and fluoroscopy. The skin and soft tissue in the tract of the injection was anesthetized with 1% Lidocaine. A spinal needle was then inserted deep into the hip joint at the level of the lateral femoral neck under fluoroscopic guidance. A small amount of Omnipaque solution was injected to confirm intraarticular placement. Once confirmed, the hip was injected with 5cc of 0.5% Bupivicaine and 80mg of Depo-Medrol. A bandaid was placed on the injection site. The patient tolerated the procedure well and noted improvement in pre-injection pain.
== END 2022-07-17 03:26 ==
LOC: DI 03:06
PROVIDERS: PCP Nurse Practitioner Family; Visit Provider Student in an Organized Health Care Education/Training Program
DX: M25.551 Pain in right hip (principal)
CPT/HCPCS: 77002; J1040

== ENCOUNTER 2022-09-17 03:13 | Outpatient (CLI) | payer BC, SELFPAY ==
[2022-09-19 10:05] LABS: PSA, Ultrasensitive <0.01 ng/mL (<= 4.5)
== END 2022-09-17 03:14 | disposition home or self-care (01) ==
PROVIDERS: PCP Nurse Practitioner Family; Visit Provider Urology
DX: C61 Malignant neoplasm of prostate (principal)
CPT/HCPCS: 36415; 84153

== ENCOUNTER → 2022-11-06 02:24 | Outpatient (CLI) | payer BC, SELFPAY ==
--- NOTE | 2022-11-06 | DI.MRI_ITS ---
Exam(s) MR LUMBAR SPINE WO EXAM: MR LUMBAR SPINE WO CLINICAL HISTORY: FUSION SI JOINT Z98.1 RT SIDED LOW BACK PAIN M54.50 G89.29. TECHNIQUE: Multiplanar multisequence MRI of the Lumbar spine was performed. COMPARISON: MR MR LUMBAR SPINE WO from 05/07/2020 FINDINGS: Bones: The last intervertebral disc space is designated the L5/S1 level for the numbering purpose of this examination. The vertebral body heights are well maintained. Alignment is satisfactory. Degene rative endplate signal changes are seen at multiple levels. Stable hemangiomas are seen. Note is ma de of bilateral SI joint fusion. Cord: The conus tip ends at the L2 level. It is of normal size and signal intensity. T12-L1: No disc herniations or bulges are present. No central spinal canal or neural foraminal stenos is. L1-2: No disc herniations or bulges are present. No central spinal canal or neural foraminal stenosis . L2-3: There is a very mild diffuse disc bulge. No significant central spinal canal stenosis. There is no right neural foraminal stenosis. There is mild narrowing of the left neural foramen. L3-4: There is a diffuse disc bulge. There are hypertrophic changes of the facets. There is mild na rrowing of the central spinal canal. There is mild bilateral neural foraminal narrowing. L4-5: There is a diffuse disc bulge. There are degenerative changes of facets, right greater than le ft. Hypertrophy of the ligamentum flavum is noted. The findings result in marked central spinal can al stenosis and right marked neural foraminal stenosis. Minimal narrowing is seen of the left neural foramen. L5-S1: No disc herniations or bulges are present. There are degenerative changes of the facets. No s ignificant central spinal canal or neural foraminal stenosis is present. Soft tissues: The visualized SI joints and sacrum are well maintained. The paraspinal soft tissues ar e unremarkable. IMPRESSION: 1. Multilevel degenerative changes of the lumbar spine. The findings are most marked at the L4-5 lev el where there is marked central spinal canal and right neural foraminal stenosis. There is minimal left neural foraminal stenosis. 2. Bilateral SI joint fusion. DATA REPOSITORY:
--- NOTE | 2022-11-06 08:35 | DI.CT_ITS ---
Exam(s) CT LUMBAR SPINE WO EXAM: CT LUMBAR SPINE WO CLINICAL HISTORY: FUSION SI JOINT Z98.1 RT SIDED LOW BACK PAIN M54.50 G89.29. TECHNIQUE: Imaging Protocol: Axial computed tomography images with coronal and sagittal reformatted images were created and reviewed COMPARISON: MR MR LUMBAR SPINE WO from 11/06/2022 FINDINGS: Bones: The last intervertebral disc space is designated the L5/S1 level for the numbering purpose of this examination. Endplate osteophytes are seen at multiple levels of the lumbar spine. There is di sc space narrowing and a vacuum disc at L4-L5. There are degenerative changes of the facets from L3- 4 through L5-S1. The findings are most marked on the right at L4-5. alignment is satisfactory. No fr acture is seen. Postsurgical changes of bilateral SI joint effusion is seen. T12-L1: No disc herniations or bulges are present. No central spinal canal or neural foraminal steno sis. L1-2: No disc herniations or bulges are present. No central spinal canal or neural foraminal stenosi s. L2-3: No disc herniations or bulges are present. No significant central spinal canal stenosis or rig ht neural foraminal stenosis. There is a mild diffuse disc bulge. There is mild narrowing of the le ft neural foramen. L3-4: There is a diffuse disc bulge. There is mild narrowing of the central spinal canal. There is mild narrowing of the left neural foramen. No central spinal canal or neural foraminal stenosis. L4-5: There is a diffuse disc bulge. There is marked right neural foraminal stenosis and mild left neural foraminal stenosis. There is marked central spinal canal stenosis. L5-S1: No disc herniations or bulges are present. No central spinal canal or neural foraminal stenos is. Soft Tissues: The visualized SI joints and sacrum are will maintained. There is diverticulosis seen in the colon. IMPRESSION: Multilevel degenerative changes in the lumbar spine. The findings are most marked at L4-L5, where th ere is marked central spinal canal and right neural foraminal stenosis. RADIATION DOSE DELIVERED: 880.89mGy.cm Total DLP 880.89mGy.cm Total DLP DATA REPOSITORY: All CT scans at this facility are submitted to the National Radiology Data Registry (NRDR) Dose Index Registry (DIR) with the [employer] (ACR). RADIATION OPTIMIZATION: All CT scans at this facility use at least one of these dose optimization te chniques: automated exposure control; mA and/or kV adjustment per patient size (includes targeted exa ms where dose is matched to clinical indication); or iterative reconstruction.
== END ==
PROVIDERS: PCP Nurse Practitioner Family; Visit Provider Orthopaedic Surgery Orthopaedic Surgery of the Spine
DX: M51.37 Other intervertebral disc degeneration, lumbosacral region (principal); M99.61 Osseous and subluxation stenosis of intervertebral foramina of cervical region
CPT/HCPCS: 72131; 72148

== ENCOUNTER 2023-01-21 09:00 | Outpatient (CLI) | payer BC, SELFPAY ==
[2023-01-21 12:48] LABS: HGB 14.6 g/dL (13.5-17.5); MCH 31.6 pg (27.0-33.0); MCHC 33.2 % (32.0-36.0); MCV 95 fL (80-95); MPV 11.2 fL (8.0-11.0); Platelet Count 130 10^3/uL (130-400); RBC 4.62 10^6/uL (4.36-5.78); RDW 12.9 % (11.8-14.1); RDW-SD 45.7 fL; WBC 4.95 10^3/uL (4.4-10.8)
[2023-01-21 13:04] LABS: CREATININE 1.3 mg/dL (0.70-1.30); Calculated LDL 99 mg/dL (<100); Cholesterol 172 mg/dL (<200); HDL Cholesterol 55 mg/dL (40-60); Triglyceride 91 mg/dL (<150)
[2023-01-21 13:10] LABS: Epithelial Cells Rare HPF (Negative); RBC 0-2 HPF (0-2); WBC 0-2 HPF (0-5)
[2023-01-21 13:11] LABS: Bacteria Many HPF (Negative); Casts Negative LPF (Negative); Crystals Negative HPF (Negative); Mucus Negative (Negative)
[2023-01-21 13:14] LABS: C & S Indicated? Yes
== END 2023-01-21 09:01 | disposition home or self-care (01) ==
LOC: LOS 09:00
PROVIDERS: Urology; PCP Nurse Practitioner Family; Visit Provider Nurse Practitioner Family
DX: Z13.220 Encounter for screening for lipoid disorders (principal); E11.9 Type 2 diabetes mellitus without complications
CPT/HCPCS: 36415; 80061; 85027; 81015; 82565; 87086

== ENCOUNTER 2023-01-22 21:08 | Outpatient (REF) | payer BC, SELFPAY ==
[2023-01-22 22:43] LABS: MRSA PCR Negative (Negative)
== END 2023-01-22 21:09 | disposition home or self-care (01) ==
LOC: LBN 21:08
PROVIDERS: PCP Nurse Practitioner Family; Visit Provider Nurse Practitioner Family
DX: Z01.818 Encounter for other preprocedural examination (principal)
CPT/HCPCS: 87641

== ENCOUNTER 2023-03-30 19:15 | Outpatient (CLI) | payer BC, SELFPAY ==
[2023-03-30 16:08] LABS: Bilirubin Small (Negative); Blood Negative (Negative); Clarity Clear (Clear); Glucose Negative (Negative); Ketones Trace mg/dL (Negative); Leukocyte Esterase Negative (Negative); Nitrite Negative (Negative); Specific Gravity >= 1.030 (1.005-1.025); Urobilinogen 0.2 mg/dL (Up to 0.2)
[2023-03-30 16:25] LABS: Bacteria Negative HPF (Negative); C & S Indicated? No; Casts 0-2 Hyaline LPF (Negative); Crystals Few Calcium Oxalate HPF (Negative); Epithelial Cells Rare HPF (Negative); Mucus Negative (Negative); RBC 0-2 HPF (0-2); WBC 0-2 HPF (0-5)
[2023-04-02 11:06] LABS: PSA, Ultrasensitive <0.01 ng/mL (<= 4.5)
== END 2023-03-30 19:16 | disposition home or self-care (01) ==
LOC: LBO 19:15
PROVIDERS: PCP Nurse Practitioner Family; Visit Provider Urology
DX: C61 Malignant neoplasm of prostate (principal); R31.29 Other microscopic hematuria
CPT/HCPCS: 36415; 84153; 81003; 81015

== ENCOUNTER 2023-08-06 16:08 | Outpatient (CLI) | payer BC, SELFPAY ==
[2023-08-06 17:31] LABS: TSH (W/Ref FT4) 2.11 uIU/mL (0.36-3.74)
[2023-08-10 10:07] LABS: Varicella IgG Antibody Positive (See Note)
[2023-08-14 09:32] LABS: Testosterone, Free 4.08 ng/dL (3.67-13.9); Testosterone, Total 171 ng/dL (240-950)
== END 2023-08-06 16:09 | disposition home or self-care (01) ==
LOC: LBO 16:09
PROVIDERS: PCP Nurse Practitioner Family; Visit Provider Nurse Practitioner Family
DX: Z01.84 Encounter for antibody response examination (principal); R53.83 Other fatigue
CPT/HCPCS: 36415; 84402; 84403; 86787; 84443

== ENCOUNTER 2023-09-14 07:46 | Emergency (ER) | payer BC, SELFPAY ==
[2023-09-14] VITALS (24 sets, daily range): BP systolic 110–144; BP diastolic 78–95; PULSE 66–82; RESP 5–18; TEMP 36.6; O2SAT 94–98
--- NOTE | 2023-09-14 07:45 | RT.EKG_ITS ---
APPROVED REPORT Exam: Resting ECG Reason for Exam: chest pain Patient Location: E HR:78 bpm ECG Measurements Heart Rate 78 AXIS NM 160 P 45 QRSd 98 QRS 56 QT 386 T 44 QTc 440 Conclusion Sinus rhythm...normal P axis, V-rate 60- 99
--- NOTE | 2023-09-14 08:01 | ED.GENADUL_ITS ---
Discharge Plan Disposition Patient Disposition: Home Condition: Stable Discharge Details Clinical Impression: Chest pain Primary Care Provider: Emir Clayton ED Provider: Talha Nicolas Home Meds and New Rx's Prescriptions: Continued (DME) lancets 28 gauge misc 1 ea Miscellaneous TID Qty: 200 1RF Rx Instructions: Patient choice - DIAGNOSIS CODE E11.65 celecoxib [Celebrex] 400 mg capsule 400 mg PO DAILY Qty: 90 3RF (DME) blood-glucose meter 1 EACH misc 1 ea Miscellaneous BID Qty: 1 Rx Instructions: Patient choice type of meter.DIAGNOSIS CODE E11.65 (DME) Blood Glucose Test Strip 1 ea Miscellaneous TID Qty: 100 2RF Rx Instructions: FOR _patient choice_ METER. Dx code E11.65 aspirin [Aspir-81] 81 mg tablet,delayed release (DR/EC) 162 mg PO DAILY rosuvastatin [Crestor] 5 mg tablet 5 mg PO DAILY Qty: 90 3RF citalopram [Celexa] 20 mg tablet 20 mg PO DAILY Qty: 90 3RF omeprazole 20 mg capsule,delayed release(DR/EC) 20 mg PO DAILY Qty: 90 3RF ketoconazole 2 % shampoo 1 applic Topical DAILY Qty: 120 3RF metformin 1,000 mg tablet 1,000 mg PO BID Qty: 180 3RF lorazepam 1 mg tablet 1 mg PO QHS Qty: 28 2RF semaglutide 0.25 mg or 0.5 mg (2 mg/3 mL) pen injector 0.5 mg subcut QWEEK Qty: 3 0RF Rx Instructions: for 4 weeks Discharge Instructions Additional Instructions: Your blood work and CAT scan did not show any concerning findings at this time Follow-up with your primary care provider within 1 to 2 weeks If you feel more ill or have severe worsening pain or difficulty breathing return to the emergency department for reevaluation HPI General Mode of arrival: ambulatory . Date/Time Provider Initiated Documentation: 09/14/23 07:54 . Limitations to Documentation: no limitations . Information obtained by: patient . History of Present Illness 63 year old M pr esents to the emergency department with the chief complaint of chest pain, described as moderate, Quality is described as stabbing and sharp, and is localized to the chest. Patient reports no radiation. Patient started experiencing this hour(s) (12) and it has been constant. No relieving factors improve symptom(s), No exacerbating factors reported . Patient notes no other symptoms.. Related Data Home Medications ?Medication ?Instructions ?Recorded ?Confirmed blood-glucose meter #1 ea 04/29/16 09/14/23 lancets 28 gauge #200 ea 03/18/18 09/14/23 blood sugar diagnostic (Blood #100 strips 11/18/19 09/14/23 Glucose Test strips) aspirin 81 mg tablet,delayed 162 mg PO DAILY 05/23/22 09/14/23 release (Aspir-) rosuvastatin 5 mg tablet (Crestor) 5 mg PO DAILY #90 tabs 06/30/22 09/14/23 citalopram 20 mg tablet (Celexa) 20 mg PO DAILY #90 tab-caps 08/28/22 09/14/23 omeprazole 20 mg capsule,delayed 20 mg PO DAILY #90 tab-caps 08/28/22 09/14/23 release ketoconazole 2 % shampoo 1 applic topical DAILY #120 mL 10/16/22 09/14/23 metformin 1,000 mg tablet 1,000 mg PO BID #180 tabs 03/11/23 09/14/23 celecoxib 400 mg capsule (Celebrex) 400 mg PO DAILY #90 caps 04/22/23 09/14/23 lorazepam 1 mg tablet 1 mg PO QHS anxiety #28 tabs 07/15/23 09/14/23 semaglutide 0.25 mg or 0.5 mg (2 0.5 mg (0.736 mL) subcut QWEEK #3 07/30/23 09/14/23 mg/3 mL) subcutaneous pen injector mL Previous Rx's ?Medication ?Instructions ?Recorded lancets 28 gauge #200 ea 03/18/18 blood sugar diagnostic (Blood #100 strips 11/18/19 Glucose Test strips) rosuvastatin 5 mg tablet (Crestor) 5 mg PO DAILY #90 tabs 06/30/22 citalopram 20 mg tablet (Celexa) 20 mg PO DAILY #90 tab-caps 08/28/22 omeprazole 20 mg capsule,delayed 20 mg PO DAILY #90 tab-caps 08/28/22 release ketoconazole 2 % shampoo 1 applic topical DAILY #120 mL 10/16/22 metformin 1,000 mg tablet 1,000 mg PO BID #180 tabs 03/11/23 celecoxib 400 mg capsule (Celebrex) 400 mg PO DAILY #90 caps 04/22/23 lorazepam 1 mg tablet 1 mg PO QHS anxiety #28 tabs 07/15/23 semaglutide 0.25 mg or 0.5 mg (2 0.5 mg (0.736 mL) subcut QWEEK #3 07/30/23 mg/3 mL) subcutaneous pen injector mL Allergies Allergy/AdvReac Type Severity Reaction Status Date / Time indomethacin AdvReac Mild RECTAL Verified 09/14/23 09:00 BLEEDING General Stated Complaint: Chest Pain BOBBI: 3 Review of Systems All systems reviewed & are unremarkable except as noted in HPI and below Constitutional Constitutional: Denies chills, Denies fever(s) and Denies weakness Cardiovascular Cardiovascular: Reports chest pain and Denies dyspnea Respiratory Respiratory: Denies cough and Denies dyspnea Gastrointestinal Gastrointestinal: Denies abdominal pain, Denies nausea and Denies vomiting Integumentary/Breasts Skin/Breast: Denies rash Neurologic Neurologic: Denies weakness Exam Const General: no acute distress Orientation: alert [facility] Head: normal to inspection Ears: external ears normal General nose exam: external nose normal Mouth: moist mucous membranes Eyes General: appearance normal, both eyes and all related structures Neck Neck: normal visual inspection Resp Effort & Inspection: normal respiratory effort and able to speak in complete sentences Auscultation: clear to auscultation bilaterally Cardio Jugular venous pressure: no JVD Rate: regular rate Heart Sounds: no murmurs GI Palpation: soft and nontender Skin General skin exam: no rashes or lesions noted Neuro General: patient alert and patient oriented x3 Extrem General: normal to inspection Psych Mental Status: mental status grossly normal Course Vital Signs Vital signs: Vital Signs Temperature 36.6 C 09/14/23 07:50 Pulse 78 09/14/23 07:50 Respiratory Rate 14 09/14/23 07:50 Blood Pressure 144/83 H 09/14/23 07:50 Pulse Oximetry 97 09/14/23 07:50 Temperature 36.6 C 09/14/23 07:50 Temperature Source Tympanic 09/14/23 07:50 Pulse 78 09/14/23 07:50 Respiratory Rate 14 09/14/23 07:50 Blood Pressure 144/83 H 09/14/23 07:50 Blood Pressure Position Sitting 09/14/23 07:50 Pulse Oximetry 97 09/14/23 07:50 Oxygen Delivery Method Room Air 09/14/23 07:50 Oxygen Flow Rate 0 09/14/23 07:50 Pain Level 2 09/14/23 07:50 Medical Decision Making 63-year-old male with a history of prior PE years ago not currently on anticoagulation, GERD, diabetes comes in with sharp anterior chest pain starting last night and during the day yesterday had some upper back pain. Denies any fevers, cough no pain with exertion, no diaphoresis, vomiting. He appears well on exam speaking in full sentences in no distress. He has no rashes of the chest wall. Clear lung sounds, no JVD, no abdominal tenderness, no calf tenderness or leg swelling. His pain is reproducible and placed on the left anterior chest. Suspect musculoskeletal chest pain but will check a troponin and also given his history of PE obtain CTA of the chest to evaluate for this. He has no tearing back pain and has equal peripheral pulses so doubt dissection. Labs and imaging unremarkable and patient remained stable has minimal pain with palpation left anterior chest. Given he had symptoms for over 12 hours do not feel delta troponin indicated. He is stable for discharge and will follow-up with his PCP return precautions given Differential Diagnosis Differential Diagnosis: Musculoskeletal chest pain, PE, pneumothorax Medical Records Medical records reviewed: Yes I reviewed the patient's medical records. Imaging Data Radiologic Study: Attestation: I personally reviewed and interpreted this imaging study as follows: Imaging: CT Scan Radiologist's impression: Patient Name: Aly Goyal Unit #: [id number] Loc: ER Ordering Provider: Talha Nicolas M.D. Status: REG ER Primary Care Provider: Emir Clayton NP Date of Exam: 09/14/23 Sex: M : 1960 Age: 63 Exam(s) a CT:CT chest PE CTA Exam(s) CT CHEST PE CTA EXAM: CT CHEST PE CTA CLINICAL HISTORY: chest pain, hx of PE. TECHNIQUE: Imaging Protocol: Axial CT angiography was performed with multi- slice acquisition and multi-planar reconstructions as well as axial, coronal and sagittal MIP reconstructions. CONTRAST MATERIAL: Intravenous: Omnipaque 350 Contrast volume:100 ml COMPARISON: CT CHEST FOR PULMONARY EMBOLUS from 06/03/2014 FINDINGS: Pulmonary Arteries: No evidence of filling defect to suggest pulmonary emboli. Tracheobronchial tree: No mucous plugging. Mediastinum and Herminia: No dominant adenopathy or fluid collection. Pulmonary parenchyma: No consolidation or dominant measurable mass. Pleura: No effusion or pneumothorax. Heart: The heart is not dilated. No coronary artery calcifications are seen. Aorta: Thoracic aorta non-dilated. No dissection. Upper abdomen: No acute findings. Bones: Unremarkable for age. Tubes, Catheters, and Lines: None Soft tissues: Unremarkable. IMPRESSION: No evidence of pulmonary embolism or other acute abnormality. Lab Data Lab results reviewed: Yes I reviewed the patient's lab results. ECG Data Attestation: I personally reviewed and interpreted this ECG (s) as follows: Prior ECG tracings: available for review Interpretation: sinus rate of 78 pr 160 no stemi Quality:SDOH Health Related Social Needs: No Data to Display [facility] All Active Problems (Updated 09/14/23 @ 09:51 by Talha Nicolas MD) Chest pain (Acute) Fatigue (Acute) Right shoulder pain (Acute) Weakness of right hip (Acute) Right hip pain (Acute) Left shoulder tendonitis (Acute) Lumbar back pain with radiculopathy affecting left lower extremity (Acute) Surgery on lumbar in Jan [address] Carlos Stiles at [facility] Right hip pain (Acute) COVID-19 (Acute) Elevated liver function tests (Acute) since 2019-elevated transaminases, US 2019-c/w Fatty Liver GERD (gastroesophageal reflux disease) (Chronic) Spinal stenosis (Acute) History of right-sided back pain with sciatica Anal and rectal polyp (Chronic 01/15/03) rectal bleeding--colonoscopy 06/19 (History of) Repeat 01/28/17 due 01/28/2022 Asthma (Chronic) Depression (Chronic 10/18/14) Type 2 diabetes mellitus (Chronic 04/15/13) Gout (Chronic) Umbilical hernia (Chronic) Atelectasis of right lung (Chronic 06/03/14) Pulmonary embolism on left (Chronic 06/03/14) Insomnia (Chronic) a. chronic benzodiazepines Medical History (Updated 09/14/23 @ 09:51 by Talha Nicolas MD) Prostate cancer Prostatectomy in April 2022 at [facility] Asthma GERD (gastroesophageal reflux disease) DM (diabetes mellitus) Surgical History (Updated 01/21/23 @ 08:20 by Emir Clayton NP) History of robot-assisted laparoscopic radical prostatectomy (05/09/22) S/P prostatectomy patella repair left; lateral release Vasectomy Tonsillectomy and adenoidectomy Repair, Rotator Cuff Colonoscopy - MAC (01/28/17) Family History Father , 88 liver cancer Personal history of malignant neoplasm LIVER Liver cancer Mother Personal history of malignant neoplasm Bladder Cancer Sister Depression Daughter No problems noted. Daughter No problems noted. Daughter No problems noted. Son No problems noted. Son No problems noted. Maternal Grandfather , 87 Stroke Paternal Grandfather , 62 No problems noted. Maternal Grandmother , 93 No problems noted. Paternal Grandmother , 62 No problems noted. 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 Pets and animals: Yes Pets and animals: dog(s) Do you think of yourself as: straight/heterosexual Current gender identity: male What is your relationship status?: How often do you talk on the phone with friends or family?: three or more times per week How often do you get together with friends or relatives?: once per week How often do you attend samaritan or nondenominational services?: 4 or more times per year Do you belong to any clubs or organized social groups?: no Panel score (0-1 are the most socially isolated patients): 3 What type of physical activity do you participate in: walking and other Details: shovel, lift,work Duration: > 90 minutes/day Frequency: 5-6 times per week Kavitha/Holiness: Moravian Special kavitha needs: No Agree to transfusion: Yes Seatbelt use: sometimes Helmet use: Yes Helmet use: always Drive intox or ride w/intox cart driver: No Working smoke detector in home: Yes Carbon monox detector in home: Yes Firearms in home: Yes Do you feel safe at home: Yes Do you feel safe in your relationship?: Yes Victim of physical abuse: No Victim of emotional abuse: No Victim of sexual abuse: No
[2023-09-14 08:34] LABS: Abs Immature Grans 0.02 10^3/uL (0.0-0.06); Absolute Basophil Count 0.05 10^3/uL (0.0-0.2); Absolute Eosinophil Count 0.15 10^3/uL (0.0-0.7); Absolute Lymphocyte Count 1.04 10^3/uL (1.2-3.4); Absolute Monocyte Count 0.46 10^3/uL (0.1-0.8); Absolute Neutrophil Count 3.41 10^3/uL (1.2-6.7); Eosinophils % 2.9 %; HCT 40.4 % (40.0-50.0); HGB 13.2 g/dL (13.5-17.5); Immature Grans % 0.4 %; Lymphocytes % 20.3 %; MCH 30.8 pg (27.0-33.0); MCHC 32.7 % (32.0-36.0); MCV 94 fL (80-95); Neutrophils % 66.4 %; RBC 4.28 10^6/uL (4.36-5.78); RDW 13.5 % (11.8-14.1); RDW-SD 46.8 fL; WBC 5.13 10^3/uL (4.4-10.8)
[2023-09-14 08:42] LABS: INR 1.1 (0.9-1.1); PTT Activated 19.7 sec (23.6-32.8); Prothrombin Time 10.6 sec (9.1-11.1)
[2023-09-14 08:50] LABS: ALT 21 U/L (16-63); AST 13 U/L (15-37); Albumin 3.7 g/dL (3.4-5.0); Alkaline Phosphatase 62 U/L (46-116); Anion Gap 9.4 mmol/L (3-11); BUN 17 mg/dL (7-18); Bilirubin, Total 0.43 mg/dL (0.2-1.0); CO2 25.6 mmol/L (21.0-32.0); CREATININE 1.2 mg/dL (0.70-1.30); Calcium 8.6 mg/dL (8.5-10.1); Chloride 109 mmol/L (98-107); Estimated GFR 68.38 (mL/min/1.73m2); Glucose 157 mg/dL (74-106); Lipase 52 U/L (16-77); Potassium 4.3 mmol/L (3.5-5.1); Sodium 144 mmol/L (136-145); Total Protein 7.2 g/dL (6.4-8.2); Troponin I < 50 ng/L (< or =60)
[2023-09-14 08:58] LABS: D-Dimer 571 ng/mlFEU (<500)
[2023-09-14 09:13] LABS: Diff Comment PLT Morph Reviewed; RBC Morphology Normal
[2023-09-14] MEDS: Omnipaque 350 MG/ML 100 ML BTL IJ (09:22)
[2023-09-14] MEDS: Normal Saline - Diluent 50 ML VIAL IJ (09:23)
--- NOTE | 2023-09-14 09:24 | DI.CT_ITS ---
Exam(s) CT CHEST PE CTA EXAM: CT CHEST PE CTA CLINICAL HISTORY: chest pain, hx of PE. TECHNIQUE: Imaging Protocol: Axial CT angiography was performed with multi-slice acquisition and mu lti-planar reconstructions as well as axial, coronal and sagittal MIP reconstructions. CONTRAST MATERIAL: Intravenous: Omnipaque 350 Contrast volume:100 ml COMPARISON: CT CHEST FOR PULMONARY EMBOLUS from 06/03/2014 FINDINGS: Pulmonary Arteries: No evidence of filling defect to suggest pulmonary emboli. Tracheobronchial tree: No mucous plugging. Mediastinum and Herminia: No dominant adenopathy or fluid collection. Pulmonary parenchyma: No consolidation or dominant measurable mass. Pleura: No effusion or pneumothorax. Heart: The heart is not dilated. No coronary artery calcifications are seen. Aorta: Thoracic aorta non-dilated. No dissection. Upper abdomen: No acute findings. Bones: Unremarkable for age. Tubes, Catheters, and Lines: None Soft tissues: Unremarkable. IMPRESSION: No evidence of pulmonary embolism or other acute abnormality. RADIATION DOSE DELIVERED: Total DLP DATA REPOSITORY: All CT scans at this facility are submitted to the National Radiology Data Registry (NRDR) Dose Index Registry (DIR) with the [employer] (ACR). RADIATION OPTIMIZATION: All CT scans at this facility use at least one of these dose optimization te chniques: automated exposure control; mA and/or kV adjustment per patient size (includes targeted exa ms where dose is matched to clinical indication); or iterative reconstruction.
== END 2023-09-14 10:10 | disposition home or self-care (01) ==
PROVIDERS: Emergency Provider Emergency Medicine; PCP Nurse Practitioner Family
DX: R07.89 Other chest pain (principal); E11.9 Type 2 diabetes mellitus without complications; Z86.711 Personal history of pulmonary embolism; Z85.46 Personal history of malignant neoplasm of prostate; Z90.79 Acquired absence of other genital organ(s); Z79.82 Long term (current) use of aspirin; Z79.84 Long term (current) use of oral hypoglycemic drugs; Z79.85 Long-term (current) use of injectable non-insulin antidiabetic drugs
CPT/HCPCS: 36415; 71275; 80053; 83690; 93005; 99285; 84484; 85025; 85379; 85610; 85730; 93010; 99284; J3490

== ENCOUNTER 2024-03-14 13:44 | Outpatient (CLI) | payer BC, SELFPAY ==
[2024-03-14 08:53] LABS: Anion Gap 11.6 mmol/L (3-11); BUN 13 mg/dL (7-18); CO2 26.4 mmol/L (21.0-32.0); CREATININE 1.3 mg/dL (0.70-1.30); Calcium 9.2 mg/dL (8.5-10.1); Calculated LDL 60 mg/dL (<100); Chloride 106 mmol/L (98-107); Cholesterol 130 mg/dL (<200); Estimated GFR 62.11 (mL/min/1.73m2); Glucose 138 mg/dL (74-106); HDL Cholesterol 54 mg/dL (40-60); Potassium 4.2 mmol/L (3.5-5.1); Sodium 144 mmol/L (136-145); Triglyceride 81 mg/dL (<150)
== END 2024-03-14 13:45 | disposition home or self-care (01) ==
LOC: LBO 13:45
PROVIDERS: PCP Nurse Practitioner Family; Visit Provider Nurse Practitioner Family
DX: Z13.220 Encounter for screening for lipoid disorders (principal); E11.9 Type 2 diabetes mellitus without complications
CPT/HCPCS: 36415; 80048; 80061

== ENCOUNTER 2024-04-15 16:33 | Outpatient (CLI) | payer BC, SELFPAY ==
[2024-04-15 13:22] LABS: Bacteria Rare HPF (Negative); C & S Indicated? No; Casts Negative LPF (Negative); Crystals Negative HPF (Negative); Epithelial Cells Rare HPF (Negative); Mucus Negative (Negative); Other Cells Negative (Negative); RBC Negative HPF (0-2); WBC Negative HPF (0-5)
[2024-04-18 13:41] LABS: PSA, Ultrasensitive <0.01 ng/mL (<= 4.5)
== END 2024-04-15 16:34 | disposition home or self-care (01) ==
LOC: LBO 16:36
PROVIDERS: PCP Nurse Practitioner Family; Visit Provider Urology
DX: R31.29 Other microscopic hematuria (principal); C61 Malignant neoplasm of prostate
CPT/HCPCS: 36415; 84153; 81015

== ENCOUNTER 2024-07-04 10:14 | Outpatient (CLI) | payer BC, SELFPAY ==
[2024-07-20 12:55] LABS: Testosterone, Free 7.02 ng/dL (3.67-13.9); Testosterone, Total 255 ng/dL (240-950)
== END 2024-07-04 10:15 | disposition home or self-care (01) ==
LOC: LBO 10:14
PROVIDERS: PCP Nurse Practitioner Family; Visit Provider Nurse Practitioner Family
DX: E29.1 Testicular hypofunction (principal)
CPT/HCPCS: 36415; 84402; 84403

== ENCOUNTER 2025-01-04 17:52 | Emergency (ER) | payer BC, SELFPAY ==
[2025-01-04 17:57] VITALS: BP 128/76; PULSE 77; RESP 16; TEMP 36.4; O2SAT 97
--- NOTE | 2025-01-04 18:00 | DI.RAD_ITS ---
Exam(s) XR HAND RT COMPLETE EXAM: XR HAND RT COMPLETE CLINICAL HISTORY: Crush Injury 2rd and 4th finger. TECHNIQUE: 2D digital imaging was performed. Three views. COMPARISON: No exams were available for comparison FINDINGS: BONES: There are nondisplaced fractures involving the 3rd and 4th fingers. There are no additional fractures. No bony destructive lesion is seen. JOINTS: No dislocation present. SOFT TISSUE: Normal. IMPRESSION: Nondisplaced tuft fractures of the 3rd 4th fingers. DATA REPOSITORY: RADIATION DOSE DELIVERED:
--- NOTE | 2025-01-04 18:07 | W.ED.GENAD ---
Discharge Plan Disposition Patient Disposition: Home Condition: Stable Discharge Details Clinical Impression: Closed fracture of tuft of distal phalanx of right ring finger, Closed fracture of tuft of distal phalanx of right middle finger, Subungual hematoma of finger of right hand Primary Care Provider: Emir Clayton ED Provider: Nicole Flynn Home Meds and New Rx's Prescriptions: No Action (DME) lancets 28 gauge misc 1 ea Miscellaneous TID Qty: 200 1RF Rx Instructions: Patient choice - DIAGNOSIS CODE E11.65 (DME) blood-glucose meter 1 EACH misc 1 ea Miscellaneous BID Qty: 1 Rx Instructions: Patient choice type of meter.DIAGNOSIS CODE E11.65 (DME) Blood Glucose Test Strip 1 ea Miscellaneous TID Qty: 100 2RF Rx Instructions: FOR _patient choice_ METER. Dx code E11.65 aspirin [Aspir-81] 81 mg tablet,delayed release (DR/EC) 162 mg PO DAILY ketoconazole 2 % shampoo 1 applic Topical DAILY Qty: 120 3RF semaglutide 1 mg/dose (4 mg/3 mL) pen injector 1 mg subcut QWEEK Qty: 9 3RF Rx Instructions: for 4 weeks testosterone 50 mg/5 gram (1 %) gel 1 tube transdermal QAM Qty: 150 0RF metformin 1,000 mg tablet 1,000 mg PO BID Qty: 180 3RF celecoxib [Celebrex] 400 mg capsule 400 mg PO DAILY Qty: 90 3RF rosuvastatin 5 mg tablet 5 mg PO DAILY Qty: 90 3RF lorazepam 1 mg tablet 1 mg PO QHS Qty: 28 2RF citalopram [Celexa] 20 mg tablet 20 mg PO DAILY Qty: 90 3RF omeprazole 20 mg capsule,delayed release(DR/EC) 20 mg PO DAILY Qty: 90 3RF Discharge Instructions Instructions: Bruising Under the Nail, Finger Fracture ED Additional Instructions: At this time x-rays show something called a tuft fracture of your 3rd and 4th finger this is not a fracture and of the bones. You also had something called a subungual hematoma which is bleeding underneath the nail. This was relieved with a small hole into your nail. You may have continued bleeding and oozing from that site for the next 2 to 3 days. Please wash it under running soap and water daily. Ice and elevate your hand. Wear the splint as previously instructed. Please follow-up with orthopedics in the next 1 to 2 weeks. They will call you for an appointment. Please take Tylenol or Ibuprofen with food every 4-6 hours as needed for pain and swelling. Follow up with primary care provider in 3-5 days. Return to ED sooner if any worsening or concerns. Stand Alone Forms: Portal Information Referrals: Emir Clayton NP [Primary Care Provider, Medicine] - 2 weeks Manohar Crouch MD [ [facility], Orthopaedic Surgical] - 2 weeks Referral Note: Tuft fractures right hand Discharge Data Discharge Date/Time-TO BE ENTERED AT DEPARTURE: 01/04/25 19:52 HPI General Mode of arrival: ambulatory. Date/Time Provider Initiated Documentation: 01/04/25 18:04. Limitations to Documentation: no limitations. Information obtained by: patient, RN notes reviewed and old records reviewed. HPI Narrative: 64-year-old male presents to the ER with a chief complaint of right hand injury which occurred just prior to arrival. Patient was working on an engine when he is 3rd and 4th fingers got smashed in her knee mechanism. He does have some blood underneath his fourth nail and some swelling and contusion noted to the palmar side of the distal tips. Has not taken any Tylenol or ibuprofen. CMS is intact. Small superficial abrasion noted to the dorsal aspect of his third finger. Patient is a diabetic does have a history of GERD and asthma prostate cancer. Related Data Home Medications Medication Instructions Recorded Confirmed blood-glucose meter #1 ea 04/29/16 01/27/24 lancets 28 gauge #200 ea 03/18/18 01/27/24 blood sugar diagnostic (Blood #100 strips 11/18/19 01/27/24 Glucose Test strips) aspirin 81 mg tablet,delayed 162 mg PO DAILY 05/23/22 01/27/24 release (Aspir-) ketoconazole 2 % shampoo 1 applic topical DAILY #120 mL 10/16/22 01/27/24 semaglutide 1 mg/dose (4 mg/3 mL) 1 mg (0.75 mL) subcut QWEEK #9 mL 03/14/24 subcutaneous pen injector testosterone 50 mg/5 gram (1 %) 1 tube transdermal QAM #150 grams 05/04/24 transdermal gel metformin 1,000 mg tablet 1,000 mg PO BID #180 tabs 06/14/24 celecoxib 400 mg capsule (Celebrex) 400 mg PO DAILY #90 caps 09/28/24 lorazepam 1 mg tablet 1 mg PO QHS anxiety #28 tabs 12/12/24 rosuvastatin 5 mg tablet 5 mg PO DAILY #90 tabs 12/12/24 citalopram 20 mg tablet (Celexa) 20 mg PO DAILY #90 tab-caps 12/23/24 omeprazole 20 mg capsule,delayed 20 mg PO DAILY #90 tab-caps 12/23/24 release Previous Rx's Medication Instructions Recorded lancets 28 gauge #200 ea 03/18/18 blood sugar diagnostic (Blood #100 strips 11/18/19 Glucose Test strips) ketoconazole 2 % shampoo 1 applic topical DAILY #120 mL 10/16/22 semaglutide 1 mg/dose (4 mg/3 mL) 1 mg (0.75 mL) subcut QWEEK #9 mL 03/14/24 subcutaneous pen injector testosterone 50 mg/5 gram (1 %) 1 tube transdermal QAM #150 grams 05/04/24 transdermal gel metformin 1,000 mg tablet 1,000 mg PO BID #180 tabs 06/14/24 celecoxib 400 mg capsule (Celebrex) 400 mg PO DAILY #90 caps 09/28/24 lorazepam 1 mg tablet 1 mg PO QHS anxiety #28 tabs 12/12/24 rosuvastatin 5 mg tablet 5 mg PO DAILY #90 tabs 12/12/24 citalopram 20 mg tablet (Celexa) 20 mg PO DAILY #90 tab-caps 12/23/24 omeprazole 20 mg capsule,delayed 20 mg PO DAILY #90 tab-caps 12/23/24 release Allergies Allergy/AdvReac Type Severity Reaction Status Date / Time indomethacin AdvReac Mild RECTAL Verified 01/04/25 18:02 BLEEDING General Stated Complaint: Orthopedic BOBBI: 4 Review of Systems Musculoskeletal Musculoskeletal: Reports as per HPI and Reports joint swelling Integumentary/Breasts Skin/Breast: Reports wounds (Right hand contusion) Exam Extrem Right upper extremity: hand Details: swelling, abrasion Location: of the 3rd digit Location: at the distal phalanx and on the dorsal aspect and ecchymosis Location: of the 3rd digit Location: at the distal phalanx and at the palmar aspect and of the 4th digit Location: at the distal phalanx and on the palmar aspect Course Vital Signs Vital signs: Vital Signs Temperature 36.4 C 01/04/25 17:57 Pulse 77 01/04/25 17:57 Respiratory Rate 16 01/04/25 17:57 Blood Pressure 128/76 01/04/25 17:57 Pulse Oximetry 97 01/04/25 17:57 Temperature 36.4 C 01/04/25 17:57 Temperature Source Oral 01/04/25 17:57 Pulse 77 01/04/25 17:57 Respiratory Rate 16 01/04/25 17:57 Blood Pressure 128/76 01/04/25 17:57 Pulse Oximetry 97 01/04/25 17:57 Oxygen Delivery Method Room Air 01/04/25 17:57 Oxygen Flow Rate 0 01/04/25 17:57 Procedure Nail Trephination Date of Procedure: 01/04/25 Time of procedure: 19:36 Provider that performed the procedure: Nicole Flynn Indication: Subungual hemotoma Time out: Yes Patient Consented: Verbally Location (finger): right and ring Sterile prep: chlorhexidine Method of drainage: nail cautery Procedure successful: Yes Patient tolerated procedure: well and no complications Complications: bleeding Procedure Description/Note: Nail trephination performed with cautery pen, pressure relieved and patient tolerated well. Medical Decision Making 64-year-old male presents to the ER with a chief complaint of right hand injury which occurred just prior to arrival. Patient was working on an engine when he is 3rd and 4th fingers got smashed in her knee mechanism. He does have some blood underneath his fourth nail and some swelling and contusion noted to the palmar side of the distal tips. Has not taken any Tylenol or ibuprofen. CMS is intact. Small superficial abrasion noted to the dorsal aspect of his third finger. Patient is a diabetic does have a history of GERD and asthma prostate cancer. X-ray ordered of right hand to rule out fracture. Patient is requesting nail trephination of the fourth finger now. He reports that he does have some swelling and pain. Xrays show 3rd and fourth finger distal tuft fractures noted. Patient does have a small subungual hematoma, less than 50% but will do nail trephination as requested for comfort. Will apply splints and refer to orthopedics. Will instruct on RICE procedures and dressing. See procedure note regarding nail trephination procedure which was successful. Patient was placed on the orthopedic follow-up list. Given discharge instructions and verbalized understanding. This text was generated using [employer] system, please disregard any oddities of phrase or misspellings. Imaging Data Radiologic Study: Imaging: X-Ray Radiologist's impression: XR HAND RT COMPLETE EXAM: XR HAND RT COMPLETE CLINICAL HISTORY: Crush Injury 2rd and 4th finger. TECHNIQUE: 2D digital imaging was performed. Three views. COMPARISON: No exams were available for comparison FINDINGS: BONES: There are nondisplaced fractures involving the 3rd and 4th fingers. There are no additional fractures. No bony destructive lesion is seen. JOINTS: No dislocation present. SOFT TISSUE: Normal. IMPRESSION: Nondisplaced tuft fractures of the 3rd 4th fingers. PFSH All Active Problems (Updated 01/04/25 @ 19:41 by Nicole Flynn, BENCH MANAGER) Subungual hematoma of finger of right hand (Acute) Closed fracture of tuft of distal phalanx of right middle finger (Acute) Closed fracture of tuft of distal phalanx of right ring finger (Acute) Hypogonadism in male (Acute) Fatigue (Acute) Right shoulder pain (Acute) Weakness of right hip (Acute) Right hip pain (Acute) Left shoulder tendonitis (Acute) Lumbar back pain with radiculopathy affecting left lower extremity (Acute) Surgery on lumbar in Jan [address] Carlos Stiles at [facility] Right hip pain (Acute) COVID-19 (Acute) Elevated liver function tests (Acute) since 2019-elevated transaminases, US 2019-c/w Fatty Liver GERD (gastroesophageal reflux disease) (Chronic) Spinal stenosis (Acute) History of right-sided back pain with sciatica Anal and rectal polyp (Chronic 01/15/03) rectal bleeding--colonoscopy 06/19 (History of) Repeat 01/28/17 due 01/28/2022 Asthma (Chronic) Depression (Chronic 10/18/14) Type 2 diabetes mellitus (Chronic 04/15/13) Gout (Chronic) Umbilical hernia (Chronic) Atelectasis of right lung (Chronic 06/03/14) Pulmonary embolism on left (Chronic 06/03/14) Insomnia (Chronic) a. chronic benzodiazepines Medical History Prostate cancer Prostatectomy in April 2022 at [facility] Asthma GERD (gastroesophageal reflux disease) DM (diabetes mellitus) Surgical History History of detached retina repair History of robot-assisted laparoscopic radical prostatectomy (05/09/22) S/P prostatectomy patella repair left; lateral release Vasectomy Tonsillectomy and adenoidectomy Repair, Rotator Cuff Colonoscopy - MAC (01/28/17) Family History Father , 88 liver cancer Personal history of malignant neoplasm LIVER Liver cancer Mother Personal history of malignant neoplasm Bladder Cancer Sister Depression Daughter No problems noted. Daughter No problems noted. Daughter No problems noted. Son No problems noted. Son No problems noted. Maternal Grandfather , 87 Stroke Paternal Grandfather , 62 No problems noted. Maternal Grandmother , 93 No problems noted. Paternal Grandmother , 62 No problems noted. 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 Pets and animals: Yes Pets and animals: dog(s) Do you think of yourself as: straight/heterosexual Current gender identity: male What is your relationship status?: How often do you talk on the phone with friends or family?: three or more times per week How often do you get together with friends or relatives?: once per week How often do you attend rastafari or buddhism services?: 4 or more times per year Do you belong to any clubs or organized social groups?: no Panel score (0-1 are the most socially isolated patients): 3 What type of physical activity do you participate in: walking and other Details: shovel, lift,work Duration: > 90 minutes/day Frequency: 5-6 times per week Kavitha/Jehovah'S Witness: Yarsani Special kavitha needs: No Agree to transfusion: Yes Seatbelt use: sometimes Helmet use: Yes Helmet use: always Drive intox or ride w/intox combine driver: No Working smoke detector in home: Yes Carbon monox detector in home: Yes Firearms in home: Yes Do you feel safe at home: Yes Do you feel safe in your relationship?: Yes Victim of physical abuse: No Victim of emotional abuse: No Victim of sexual abuse: No
== END 2025-01-04 19:52 | disposition home or self-care (01) ==
PROVIDERS: Emergency Provider Registered Nurse Emergency; PCP Nurse Practitioner Family
DX: S62.632A Displaced fracture of distal phalanx of right middle finger, initial encounter for closed fracture (principal); S62.634A Displaced fracture of distal phalanx of right ring finger, initial encounter for closed fracture; S60.10XA Contusion of unspecified finger with damage to nail, initial encounter; W23.0XXA Caught, crushed, jammed, or pinched between moving objects, initial encounter; Y93.89 Activity, other specified
CPT/HCPCS: 99283 ×2; 11740; 29130; 73130